=== PATIENT | female | born 1975 | race Caucasian/White ===

== ENCOUNTER 2021-07-18 11:22 | Inpatient (IN) | payer MEDICARE, OTHER ==
[~2021-07-18] VITALS: Ht 154.9 cm; Wt 204.1 kg
[2021-07-18] MEDS ORDERED: SODIUM CHLORIDE 0.9% 1000ML 1,000 ML IV STA (11:53)
[2021-07-18] MEDS ORDERED: PIPERACILLIN/TAZOBACTAM 3.375 GM in SODIUM CHLORIDE 0.9% 50ML 50 ML IV ONE (12:00)
[2021-07-18 12:11] LABS: BASOPHILS % 0.3 % (0.0-1.0); EOSINOPHILS # (AUTO) 0.1 (0.0-0.4); EOSINOPHILS % 0.6 % (0.0-6.0); HEMATOCRIT 39.2 % (34.2-44.1); HEMOGLOBIN 12.7 g/dL (12.0-16.0); LYMPHOCYTES # (AUTO) 1.5 (1.0-3.2); LYMPHOCYTES % 11.1 % (18.0-39.1); MEAN CORPUSCULAR HEMOGLOBIN 29.8 pg (28-32); MEAN CORPUSCULAR HGB CONC 32.4 g/dL (31-35); MONOCYTES % 7.6 % (4.4-11.3); NEUTROPHILS # (AUTO) 10.4 (2.1-6.9); PLATELET COUNT 264 x10e3/uL (140-360); RED BLOOD COUNT 4.26 x10e6/uL (3.6-5.1); RED CELL DISTRIBUTION WIDTH 14.8 % (11.7-14.4)
[2021-07-18 12:13] LABS: INR 1.07; PROTHROMBIN TIME 14.1 seconds (11.9-14.5)
[2021-07-18 12:14] LABS: PARTIAL THROMBOPLASTIN TIME 29.8 seconds (23.8-35.5)
[2021-07-18 12:24] LABS: ALBUMIN 2.9 g/dL (3.5-5.0); ALBUMIN/GLOBULIN RATIO 0.7 (0.8-2.0); ANION GAP 14.9 mmol/L (8-16); CALCIUM 8.5 mg/dL (8.4-10.2); CREATININE, SERUM 0.8 mg/dL (0.57-1.11); MAGNESIUM 1.7 MG/DL (1.3-2.1); POTASSIUM 3.9 mmol/L (3.5-5.1)
[2021-07-18 12:28] LABS: B-TYPE NATRIURETIC PEPTIDE2 15.1 pg/mL (0-100)
[2021-07-18] MEDS ORDERED: MORPHINE SULFATE INJ 4 MG/ML INJ 1ML IV ONE (12:30)
[2021-07-18] MEDS ORDERED: ONDANSETRON HCL INJ 2MG/ML 2ML 2 MG/ML VIAL IV NR (12:30)
[2021-07-18] MEDS ORDERED: Vancomycin IV 1 GM in SODIUM CHLORIDE 0.9% 250ML 250 ML IV ONE (13:00)
[2021-07-18] MEDS ORDERED: SODIUM CHLORIDE 0.9% 50ML 50 ML ONE (13:50)
[2021-07-18] MEDS ORDERED: IOPAMIDOL 370 MG/ML 200 ML INFUS..BTL INJ ONE (13:50)
[2021-07-18] MEDS: ENOXAPARIN SODIUM INJ 100 MG/ML SYR SC SCH (16:53)
[2021-07-18] MEDS: PIPERACILLIN/TAZOBACTAM 3.375 GM in SODIUM CHLORIDE 0.9% 50ML 50 ML IV SCH (18:43)
[2021-07-18] MEDS: MORPHINE SULFATE INJ 2 MG/ML SYR IV PRN (19:01)
[2021-07-18] MEDS: ONDANSETRON HCL INJ 2MG/ML 2ML 2 MG/ML VIAL IV PRN (19:01)
[2021-07-19] VITALS (8 sets, daily range): BP systolic 105–125; BP diastolic 55–82
[2021-07-19] MEDS: PIPERACILLIN/TAZOBACTAM 3.375 GM in SODIUM CHLORIDE 0.9% 50ML 50 ML IV SCH ×4 (01:01→18:30)
[2021-07-19] MEDS: MORPHINE SULFATE INJ 2 MG/ML SYR IV PRN ×4 (01:01→21:38)
[2021-07-19] MEDS: ONDANSETRON HCL INJ 2MG/ML 2ML 2 MG/ML VIAL IV PRN ×3 (01:01→12:45)
[2021-07-19] MEDS: ENOXAPARIN SODIUM INJ 100 MG/ML SYR SC SCH ×2 (04:42→17:38)
[2021-07-19] MEDS: Vancomycin IV 1 GM in SODIUM CHLORIDE 0.9% 250ML 250 ML IV SCH ×3 (04:42→21:38)
[2021-07-19] MEDS ORDERED: ENOXAPARIN SOD INJ 60 MG/0.6 ML SYR SC ONE (04:51)
[2021-07-19] MEDS ORDERED: ENOXAPARIN SOD INJ 40 MG/0.4 ML SYR SC ONE (04:51)
[2021-07-19] MEDS ORDERED: WELLBUTRIN SR150 MG PO (06:27)
[2021-07-19] MEDS ORDERED: POTASSIUM CHLO20 ME1 PO (06:27)
[2021-07-19] MEDS ORDERED: MELOXICAM7.5 MG PO (06:27)
[2021-07-19] MEDS ORDERED: SYNTHROID25 MCG PO (06:27)
[2021-07-19] MEDS ORDERED: SODIUM CHLORIDE 0.9% 50ML 50 ML ONE (06:42)
[2021-07-19 10:27] LABS: BASOPHILS % 0.3 % (0.0-1.0); EOSINOPHILS # (AUTO) 0.3 (0.0-0.4); EOSINOPHILS % 3.5 % (0.0-6.0); HEMATOCRIT 38.5 % (34.2-44.1); HEMOGLOBIN 11.8 g/dL (12.0-16.0); LYMPHOCYTES # (AUTO) 1.4 (1.0-3.2); LYMPHOCYTES % 15.5 % (18.0-39.1); MEAN CORPUSCULAR HEMOGLOBIN 29.5 pg (28-32); MEAN CORPUSCULAR HGB CONC 30.6 g/dL (31-35); MEAN CORPUSCULAR VOLUME 96.3 fL (81-99); MONOCYTES # (AUTO) 0.6 (0.2-0.8); MONOCYTES % 6.8 % (4.4-11.3); NEUTROPHILS # (AUTO) 6.5 (2.1-6.9); PLATELET COUNT 230 x10e3/uL (140-360)
[2021-07-19 11:08] LABS: ALBUMIN 2.4 g/dL (3.5-5.0); ALBUMIN/GLOBULIN RATIO 0.6 (0.8-2.0); ANION GAP 11.8 mmol/L (8-16); CALCIUM 7.7 mg/dL (8.4-10.2); CREATINE KINASE 130 IU/L (29-168); CREATININE, SERUM 0.75 mg/dL (0.57-1.11); POTASSIUM 3.8 mmol/L (3.5-5.1)
[2021-07-19] MEDS: NICOTINE 21 MG/EA PATCH TOP SCH (12:50)
[2021-07-20] VITALS (8 sets, daily range): BP systolic 105–120; BP diastolic 57–70
[2021-07-20] MEDS: PIPERACILLIN/TAZOBACTAM 3.375 GM in SODIUM CHLORIDE 0.9% 50ML 50 ML IV SCH ×5 (01:05→23:47)
[2021-07-20] MEDS: ENOXAPARIN SODIUM INJ 100 MG/ML SYR SC SCH ×2 (04:14→17:52)
[2021-07-20] MEDS: MORPHINE SULFATE INJ 2 MG/ML SYR IV PRN ×2 (05:58→21:36)
[2021-07-20] MEDS: NICOTINE 21 MG/EA PATCH TOP SCH (08:29)
[2021-07-20] MEDS: Vancomycin IV 1 GM in SODIUM CHLORIDE 0.9% 250ML 250 ML IV SCH ×2 (08:29→20:44)
[2021-07-20] MEDS ORDERED: ACETAMINOPHEN/CODEINE 300MG - 30MG TAB PO PRN (17:30)
[2021-07-20] MEDS ORDERED: ONDANSETRON HCL 4 MG ORAL DISINTEGRATING TAB PO PRN (17:30)
[2021-07-20] MEDS: TRAMADOL HCL 50 MG TAB PO PRN (17:53)
[2021-07-20] MEDS ORDERED: SODIUM CHLORIDE 0.9% 100 ML ONE (21:11)
[2021-07-20] MEDS: ONDANSETRON HCL INJ 2MG/ML 2ML 2 MG/ML VIAL IV PRN (21:37)
[2021-07-21] VITALS: BP 117/66
[2021-07-21 04:00] VITALS: BP 119/66
[2021-07-21] MEDS: ENOXAPARIN SODIUM INJ 100 MG/ML SYR SC SCH ×2 (04:31→15:42)
[2021-07-21] MEDS: PIPERACILLIN/TAZOBACTAM 3.375 GM in SODIUM CHLORIDE 0.9% 50ML 50 ML IV SCH ×3 (05:19→17:00)
[2021-07-21] MEDS: MORPHINE SULFATE INJ 2 MG/ML SYR IV PRN ×4 (05:51→20:30)
[2021-07-21] MEDS: ONDANSETRON HCL INJ 2MG/ML 2ML 2 MG/ML VIAL IV PRN ×4 (05:51→20:30)
[2021-07-21 08:11] VITALS: BP 117/69
[2021-07-21 08:16] VITALS: BP 120/89
[2021-07-21] MEDS: NICOTINE 21 MG/EA PATCH TOP SCH (08:37)
[2021-07-21] MEDS ORDERED: IMODIUM A-D2 M2 PO (10:54)
[2021-07-21] MEDS: Vancomycin IV 1 GM in SODIUM CHLORIDE 0.9% 250ML 250 ML IV SCH ×2 (12:41→21:00)
[2021-07-21 20:00] VITALS: BP 110/61
[2021-07-21 22:05] VITALS: BP 110/61
[2021-07-22] VITALS: BP 113/65
[2021-07-22] MEDS: ENOXAPARIN SODIUM INJ 100 MG/ML SYR SC SCH ×2 (03:17→16:52)
[2021-07-22] MEDS: ONDANSETRON HCL INJ 2MG/ML 2ML 2 MG/ML VIAL IV PRN ×4 (03:18→23:30)
[2021-07-22] MEDS: MORPHINE SULFATE INJ 2 MG/ML SYR IV PRN ×6 (03:18→23:30)
[2021-07-22 04:00] VITALS: BP 115/65
[2021-07-22] MEDS: PIPERACILLIN/TAZOBACTAM 3.375 GM in SODIUM CHLORIDE 0.9% 50ML 50 ML IV SCH ×6 (05:12→23:34)
[2021-07-22] MEDS: NICOTINE 21 MG/EA PATCH TOP SCH (09:21)
[2021-07-22] MEDS: Vancomycin IV 1 GM in SODIUM CHLORIDE 0.9% 250ML 250 ML IV SCH (09:35)
[2021-07-22 11:33] VITALS: BP 102/61
[2021-07-22] MEDS ORDERED: LEVOFLOXACIN500 MG PO (13:30)
[2021-07-22] MEDS ORDERED: CYMBALTA30 MG PO (13:32)
[2021-07-22] MEDS ORDERED: GABAPENTIN100 MG PO (13:32)
[2021-07-22] MEDS ORDERED: ACETAMINOPHEN650 M1 PO (13:32)
[2021-07-22 20:00] VITALS: BP 106/63
[2021-07-22 22:04] VITALS: BP 102/61
[2021-07-23] VITALS (8 sets, daily range): BP systolic 105–119; BP diastolic 55–73
[2021-07-23] MEDS: ONDANSETRON HCL INJ 2MG/ML 2ML 2 MG/ML VIAL IV PRN ×5 (03:40→22:25)
[2021-07-23] MEDS: MORPHINE SULFATE INJ 2 MG/ML SYR IV PRN ×5 (03:40→22:20)
[2021-07-23] MEDS: ENOXAPARIN SODIUM INJ 100 MG/ML SYR SC SCH ×2 (03:41→17:03)
[2021-07-23] MEDS: PIPERACILLIN/TAZOBACTAM 3.375 GM in SODIUM CHLORIDE 0.9% 50ML 50 ML IV SCH ×3 (05:10→17:03)
[2021-07-23] MEDS: NICOTINE 21 MG/EA PATCH TOP SCH (08:06)
[2021-07-24] VITALS (8 sets, daily range): BP systolic 110–126; BP diastolic 61–76
[2021-07-24] MEDS: MORPHINE SULFATE INJ 2 MG/ML SYR IV PRN ×3 (03:11→17:51)
[2021-07-24] MEDS: ONDANSETRON HCL INJ 2MG/ML 2ML 2 MG/ML VIAL IV PRN (03:11)
[2021-07-24] MEDS: ENOXAPARIN SODIUM INJ 100 MG/ML SYR SC SCH ×2 (04:00→17:00)
[2021-07-24] MEDS: PIPERACILLIN/TAZOBACTAM 3.375 GM in SODIUM CHLORIDE 0.9% 50ML 50 ML IV SCH ×6 (06:14→23:11)
[2021-07-24] MEDS: NICOTINE 21 MG/EA PATCH TOP SCH (12:06)
[2021-07-24] MEDS ORDERED: SODIUM CHLORIDE 0.9% 50ML 50 ML ONE (12:44)
[2021-07-25] VITALS (8 sets, daily range): BP systolic 106–124; BP diastolic 51–69
[2021-07-25] MEDS: MORPHINE SULFATE INJ 2 MG/ML SYR IV PRN (00:15)
[2021-07-25] MEDS: ENOXAPARIN SODIUM INJ 100 MG/ML SYR SC SCH (04:13)
[2021-07-25] MEDS: PIPERACILLIN/TAZOBACTAM 3.375 GM in SODIUM CHLORIDE 0.9% 50ML 50 ML IV SCH ×4 (05:46→23:31)
[2021-07-25] MEDS: TRAMADOL HCL 50 MG TAB PO PRN ×3 (08:12→21:36)
[2021-07-25 08:39] LABS: BASOPHILS % 0.3 % (0.0-1.0); EOSINOPHILS # (AUTO) 0.4 (0.0-0.4); EOSINOPHILS % 6.5 % (0.0-6.0); HEMATOCRIT 37.7 % (34.2-44.1); HEMOGLOBIN 11.6 g/dL (12.0-16.0); LYMPHOCYTES # (AUTO) 0.9 (1.0-3.2); LYMPHOCYTES % 14.5 % (18.0-39.1); MEAN CORPUSCULAR HEMOGLOBIN 29.7 pg (28-32); MEAN CORPUSCULAR HGB CONC 30.8 g/dL (31-35); MEAN CORPUSCULAR VOLUME 96.7 fL (81-99); MONOCYTES # (AUTO) 0.3 (0.2-0.8); MONOCYTES % 5.1 % (4.4-11.3); NEUTROPHILS # (AUTO) 4.2 (2.1-6.9); NEUTROPHILS % 72.4 % (38.7-80.0); PLATELET COUNT 265 x10e3/uL (140-360); RED CELL DISTRIBUTION WIDTH 14.9 % (11.7-14.4)
[2021-07-25 08:58] LABS: ANION GAP 11.9 mmol/L (8-16); CALCIUM 8.2 mg/dL (8.4-10.2); CREATININE, SERUM 0.77 mg/dL (0.57-1.11); POTASSIUM 3.9 mmol/L (3.5-5.1)
[2021-07-25] MEDS: NICOTINE 21 MG/EA PATCH TOP SCH (09:05)
[2021-07-25] MEDS: GABAPENTIN 100 MG CAP PO SCH ×3 (09:05→21:35)
[2021-07-25] MEDS ORDERED: SODIUM CHLORIDE 0.9% 50ML 50 ML ONE (13:42)
[2021-07-25] MEDS: ENOXAPARIN SOD INJ 40 MG/0.4 ML SYR SC SCH (16:55)
[2021-07-25] MEDS ORDERED: SODIUM CHLORIDE 0.9% 250ML 250 ML ONE (23:34)
[2021-07-26 00:18] VITALS: BP 106/60
[2021-07-26] MEDS: TRAMADOL HCL 50 MG TAB PO PRN ×2 (05:10→18:51)
[2021-07-26] MEDS: PIPERACILLIN/TAZOBACTAM 3.375 GM in SODIUM CHLORIDE 0.9% 50ML 50 ML IV SCH ×3 (05:10→17:32)
[2021-07-26 06:21] VITALS: BP_SYST 112; BP_SYST 148; BP_DIAS 79; BP_DIAS 80
[2021-07-26 08:00] VITALS: BP 100/54
[2021-07-26] MEDS: NICOTINE 21 MG/EA PATCH TOP SCH (08:03)
[2021-07-26] MEDS: GABAPENTIN 100 MG CAP PO SCH ×3 (08:03→21:30)
[2021-07-26 08:38] VITALS: BP 100/54
[2021-07-26] MEDS: DIPHENHYDRAMINE HCL 25 MG CAP PO PRN (11:26)
[2021-07-26] MEDS ORDERED: METHYLPREDNISOLONE SOD SUCC 40 MG/ML VIAL 1ML IV ONE (11:45)
[2021-07-26] MEDS: ENOXAPARIN SOD INJ 40 MG/0.4 ML SYR SC SCH (17:31)
[2021-07-26 20:00] VITALS: BP 125/69
[2021-07-26 22:46] VITALS: BP 125/69
[2021-07-27] VITALS: BP 129/66
[2021-07-27 04:00] VITALS: BP 134/65
[2021-07-27] MEDS: PIPERACILLIN/TAZOBACTAM 3.375 GM in SODIUM CHLORIDE 0.9% 50ML 50 ML IV SCH ×4 (06:00→11:06)
[2021-07-27 07:23] VITALS: BP 128/73
[2021-07-27 07:43] VITALS: BP 128/73
[2021-07-27] MEDS: GABAPENTIN 100 MG CAP PO SCH ×2 (08:18→13:42)
[2021-07-27] MEDS: NICOTINE 21 MG/EA PATCH TOP SCH (08:18)
[2021-07-27] MEDS: TRAMADOL HCL 50 MG TAB PO PRN (08:18)
[2021-07-27 11:28] VITALS: BP 143/72
[2021-07-27] MEDS: DIPHENHYDRAMINE HCL 25 MG CAP PO PRN (13:34)
[2021-07-27 15:40] VITALS: BP 162/84
== END 2021-07-27 18:22 | disposition home or self-care (01) | DRG 194 ==
LOC: ER 12:00 → ERHOLD 15:45 → MED/SURG3 07-19 02:10
PROVIDERS: ADMIT Internal Medicine; ATTEND Internal Medicine
DX: J18.9 Pneumonia, unspecified organism (principal); L03.116 Cellulitis of left lower limb; Z68.45 Body mass index [BMI] 70 or greater, adult; E66.01 Morbid (severe) obesity due to excess calories
CPT/HCPCS: 29581; 36415; 71045; 73701; 80048; 80053; 80202; 82550; 82553; 83605; 83735; 83880; 84484; 84702; 85025; 85610; 85730; 87040; 87071; 87186; 87205; 93306; 93971; 99251; 99285; J1650; J2270; J2405; J2543; J2920; J3370; J7030; J7050; Q9967; U0002